=== PATIENT | female | born 1970 | race American Indian/Alaskan Native ===

== ENCOUNTER 2018-01-08 12:20 | Day surgery (SDC) | payer OTHER ==
[2018-01-08 13:56] LABS: Eosinophils # (Auto) 0.1 K/mm3 (0.0-0.4); Eosinophils % (Auto) 2.6 % (0.0-4.3); Hematocrit 30.6 % (30.3-42.9); Hemoglobin 9.8 gm/dl (10.1-14.3); Lymphocytes # (Auto) 0.9 K/mm3 (1.2-5.4); Mean Corpuscular HGB Conc 32 % (30-34); Mean Corpuscular Volume 78 fl (79-97); Monocytes # (Auto) 0.4 K/mm3 (0.0-0.8); Monocytes % (Auto) 9.9 % (0.0-7.3); Platelet Count 182 K/mm3 (140-440); Red Blood Count 3.93 M/mm3 (3.65-5.03); Red Cell Distribution Width 15.1 % (13.2-15.2)
[2018-01-08 13:59] LABS: Mean Corpuscular Hemoglobin 25 pg (28-32)
[2018-01-08 14:12] LABS: INR 0.94 (0.87-1.13); Partial Thromboplastin Time 28.2 Sec. (24.2-36.6)
[2018-01-08 15:36] VITALS: BP 136/84
--- NOTE | 2018-01-08 15:37 | Short Stay Summary ---
Short Stay Documentation Date of service: 01/08/18 - History Principal diagnosis: weakness in legs, MS workup - Allergies and Medications Current Medications: Allergies hydrochlorothiazide Allergy (Severe, Verified 01/08/18 13:02) Shortness of Breath Penicillins Allergy (Severe, Verified 01/08/18 13:02) Shortness of Breath Home Medications Medication Instructions Recorded Confirmed Last Taken Type Ascorbic Acid [Vitamin C] 500 mg PO QDAY 01/08/18 01/08/18 01/07/18 History Aspirin EC [Aspirin Enteric Coated 81 mg PO QDAY 01/08/18 01/08/18 01/07/18 History TAB] Cod Liver Oil 1 cap PO QDAY 01/08/18 01/08/18 01/07/18 History Cyanocobalamin (Vitamin B-12) 2,500 mcg PO QDAY 01/08/18 01/08/18 01/07/18 History [Vitamin B12] Gabapentin [Neurontin] 600 mg PO BID 01/08/18 01/08/18 01/07/18 History Lila Root [Lila] 250 mg PO QDAY 01/08/18 01/08/18 01/07/18 History Labetalol [Normodyne TAB] 100 mg PO BID 01/08/18 01/08/18 01/08/18 09:00 History Multivitamin [Multiple Vitamins] 1 tab PO QDAY 01/08/18 01/08/18 01/07/18 History Pantoprazole [Protonix] 40 mg PO QDAY 01/08/18 01/08/18 01/07/18 History Vitamin B Complex [B Complex] 1 tab PO QDAY 01/08/18 01/08/18 01/07/18 History Zolpidem [Ambien] 5 mg PO QHS PRN 01/08/18 01/08/18 01/07/18 History oxyCODONE /ACETAMINOPHEN [Percocet 1 tab PO Q6H PRN 01/08/18 01/08/18 01/07/18 History 5/325 mg] - Physical exam General appearance: mild distress Extremities: no ischemia, pulses intact, No edema, normal color - Brief post op/procedure progress note Date of procedure: 01/08/18 Pre-op diagnosis: G35 Post-op diagnosis: same Procedure: flouro guided lumbar puncture Anesthesia: local Surgeon: CALLY MCGOWAN Estimated blood loss: none Pathology: list (4 CSF tubes) Specimen disposition: to lab Condition: stable - Disposition Condition at discharge: Good Disposition: [id number] TO HOME OR SELFCARE Short Stay Discharge Plan Follow up with: FERMÍN AGUILAR MD [Primary Care Provider] - 7 Days
[2018-01-08 16:08] LABS: Glucose,CSF 58 mg/dL
[2018-01-08 16:18] LABS: Appearance,CSF Clear
[2018-01-08 16:53] LABS: Red Blood Cell,CSF 0 /mm3 (0-0); White Blood Cell,CSF 0 /mm3 (1-10)
[2018-01-08 16:55] LABS: Basophils CSF 0 %
--- NOTE | 2018-01-08 17:33 | Fluoroscopy Report ---
FLUOROSCOPY LUMBAR PUNCTURE History: Multiple sclerosis Description of procedure: Informed consent was obtained. Sterile technique was utilized. 1% lidocaine for skin anesthesia. One fluoroscopic image was obtained. Using fluoroscopic guidance, lumbar puncture was performed at the L3-4 level. There was spontaneous return of clear CSF. The opening pressure was elevated measuring 35 cm of water. Approximately 8 cc of CSF fluid was collected in 4 tubes. The closing pressure measured 24 cm water. No complications. Impression: Successful fluoroscopy-guided lumbar puncture. The opening pressure was elevated measuring 35 cm of water.
== END 2018-01-08 16:30 | disposition home or self-care (01) ==
LOC: CATHLABREC 12:20
PROVIDERS: ATTEND Psychiatry & Neurology Neurology
DX: G35 Multiple sclerosis (principal); Z88.0 Allergy status to penicillin; Z88.8 Allergy status to other drugs, medicaments and biological substances; Z79.82 Long term (current) use of aspirin; Z79.899 Other long term (current) drug therapy; Z79.01 Long term (current) use of anticoagulants
CPT/HCPCS: 36415; 62270; 77003; 82947; 84160; 85025; 85610; 85730; 89051